=== PATIENT | male | born 1995 | race Caucasian/White ===

== ENCOUNTER 2018-03-12 06:51 | Emergency (ER) | payer SELFPAY ==
[~2018-03-12] VITALS: Ht 175.3 cm; Wt 79.5 kg
[2018-03-12 09:10] VITALS: BP 140/78
== END 2018-03-12 09:22 | disposition home or self-care (01) ==
LOC: EMS 06:52
DX: S93.402A Sprain of unspecified ligament of left ankle, initial encounter (principal); V27.4XXA Motorcycle driver injured in collision with fixed or stationary object in traffic accident, initial encounter; Y93.89 Activity, other specified; Y92.411 Interstate highway as the place of occurrence of the external cause; Y99.8 Other external cause status
CPT/HCPCS: 99284